=== PATIENT | male | born 1975 | race Two or more races ===

== ENCOUNTER 2017-11-09 19:04 | Inpatient (IN) | payer MEDICAID ==
[~2017-11-09] VITALS: Ht 177.8 cm; Wt 72.6 kg
[2017-11-09] MEDS ORDERED: Ipratropium 0.02% Inh Soln 2.5ml UD HHN ONE (19:30)
[2017-11-09] MEDS ORDERED: Solu-MEDROL 125mg Inj IVP ONE (19:30)
--- NOTE | 2017-11-09 19:36 | Emergency Room Report ---
History of Present Illness General Chief Complaint: Upper Respiratory Illness Source: Patient Present Illness HPI 42-year-old male, history of hypertension, long time smoker but no formal diagnosis of COPD, p/w SOB for 1 week. SOB occurs both at rest and on exertion.+ productive cough with sputum, fever and chills, Denies chest pain. Noted to be wheezing, States that he has never had an albuterol inhaler Denies sick contacts or recent travel. NO Recent hospitalizations Allergies: Coded Allergies: PENICILLINS (Verified Allergy, Unknown, 11/09/17) Patient History Past Medical History: see triage record Past Surgical History: none Pertinent Family History: none Reviewed Nursing Documentation: PMH: Agreed, PSxH: Agreed Review of Systems All Other Systems: negative except mentioned in HPI Physical Exam Vital Signs Date Time Temp Pulse Resp B/P (MAP) Pulse Ox O2 Delivery O2 Flow Rate FiO2 11/09/17 19:02 99.0 89 20 162/101 97 Room Air 99.0 Sp02 EP Interpretation: reviewed, normal General Appearance: moderate distress, other - resp distress speaking 2-3 word sentences Head: normocephalic, atraumatic Eyes: bilateral eye normal inspection, bilateral eye PERRL, bilateral eye EOMI ENT: normal ENT inspection, normal pharynx, normal voice, moist mucus membranes Neck: normal inspection, full range of motion, supple Respiratory: respiratory distress, wheezing, chest symmetrical Cardiovascular #1: normal inspection, regular rate, rhythm, normal capillary refill Cardiovascular #2: 2+ radial (R), 2+ radial (L) Gastrointestinal: normal inspection, non tender, soft, non-distended, no guarding Genitourinary: no CVA tenderness Musculoskeletal: normal inspection, back normal, normal range of motion, non- tender Neurologic: normal inspection, alert, oriented x3, responsive, motor strength/ tone normal, sensory intact, normal gait, speech normal Psychiatric: normal inspection, judgement/insight normal, memory normal Skin: normal inspection, normal color, no rash, warm/dry, well hydrated, normal turgor Medical Decision Making Diagnostic Impression: Primary Impression: Respiratory distress Additional Impressions: Wheezing Pneumonia ER Course 42-year-old male with fever chills cough shortness of breath for one week DDX: Viral URI vs. pneumonia versus COPD exacerbation Plan: Labs, CXR, nebs, steroids, antibiotics ER course: Nebs and steroids given patient "shaking" was awake during that time, feels like muscles are spasms VS normal during event ativan was given levaquin given for pna Disposition: Patient is to be admitted to telemetry D/w hospitalist Dr Swan / Dr Vanegas EKG Diagnostic Results EP Interpretation: Yes Rate: normal Rhythm: NSR ST Segments: No acute changes ASA given to patient: No Rhythm Strip EP Interpretation: Yes Rate: 70 Rhythm: NSR, no PVCs, no ectopy Chest X-ray CXR: Ordered: Yes 1 view Indication: SOB EP interpretation: Yes Interpretation: +Infiltrate R Impression: R sided pneumonia Electronically signed by Bryce Reynolds MD Laboratory Tests Test 11/09/17 19:30 White Blood Count 8.9 K/UL (4.8-10.8) Red Blood Count 5.79 M/UL (4.70-6.10) Hemoglobin 16.2 G/DL (14.2-18.0) Hematocrit 48.7 % (42.0-52.0) Mean Corpuscular Volume 84 FL (80-99) Mean Corpuscular Hemoglobin 28.0 PG (27.0-31.0) Mean Corpuscular Hemoglobin Concent 33.3 G/DL (32.0-36.0) Red Cell Distribution Width 11.1 % (11.6-14.8) L Platelet Count 238 K/UL (150-450) Mean Platelet Volume 7.9 FL (6.5-10.1) Neutrophils (%) (Auto) 49.5 % (45.0-75.0) Lymphocytes (%) (Auto) 27.2 % (20.0-45.0) Monocytes (%) (Auto) 13.0 % (1.0-10.0) H Eosinophils (%) (Auto) 8.7 % (0.0-3.0) H Basophils (%) (Auto) 1.6 % (0.0-2.0) Sodium Level 137 MMOL/L (136-145) Potassium Level 3.3 MMOL/L (3.5-5.1) L Chloride Level 100 MMOL/L (98-107) Carbon Dioxide Level 29 MMOL/L (21-32) Anion Gap 8 mmol/L (5-15) Blood Urea Nitrogen 23 mg/dL (7-18) H Creatinine 1.0 MG/DL (0.55-1.30) Estimate Glomerular Filtration Rate > 60 mL/min (>60) Glucose Level 103 MG/DL (74-106) Lactic Acid Level 1.10 mmol/L (0.66-2.22) Calcium Level 9.3 MG/DL (8.5-10.1) Total Bilirubin 0.3 MG/DL (0.2-1.0) Aspartate Amino Transferase (AST) 28 U/L (15-37) Alanine Aminotransferase (ALT) 39 U/L (12-78) Alkaline Phosphatase 98 U/L (46-116) Total Protein 7.9 G/DL (6.4-8.2) Albumin 4.3 G/DL (3.4-5.0) Globulin 3.6 g/dL Albumin/Globulin Ratio 1.2 (1.0-2.7) Last Vital Signs Date Time Temp Pulse Resp B/P (MAP) Pulse Ox O2 Delivery O2 Flow Rate FiO2 11/09/17 19:02 99.0 89 20 162/101 97 Room Air 99.0 Disposition: ADMITTED INPATIENT Condition: Bryce Kendall M.D. Nov 09, 2017 19:36
[2017-11-09] MEDS ORDERED: LORazepam Inj 2mg/ml 1ml ONE (19:40)
[2017-11-09] MEDS ORDERED: LORazepam Inj 2mg/ml 1ml IV ONE (19:45)
[2017-11-09 19:54] LABS: BASOPHILS % (AUTO) 1.6 % (0.0-2.0); EOSINOPHILS % (AUTO) 8.7 % (0.0-3.0); HEMATOCRIT 48.7 % (42.0-52.0); HEMOGLOBIN 16.2 G/DL (14.2-18.0); LYMPHOCYTES % (AUTO) 27.2 % (20.0-45.0); MEAN CORPUSCULAR VOLUME 84 FL (80-99); NEUTROPHILS % (AUTO) 49.5 % (45.0-75.0); PLATELET COUNT 238 K/UL (150-450); RED BLOOD COUNT 5.79 M/UL (4.70-6.10); RED CELL DISTRIBUTION WIDTH 11.1 % (11.6-14.8); WHITE BLOOD COUNT 8.9 K/UL (4.8-10.8)
[2017-11-09 20:09] LABS: ANION GAP 8 mmol/L (5-15); BLOOD UREA NITROGEN 23 mg/dL (7-18); CALCIUM 9.3 MG/DL (8.5-10.1); CARBON DIOXIDE 29 MMOL/L (21-32); CHLORIDE 100 MMOL/L (98-107); POTASSIUM 3.3 MMOL/L (3.5-5.1); SODIUM 137 MMOL/L (136-145)
[2017-11-09 20:14] LABS: ALANINE AMINOTRANSFERASE 39 U/L (12-78); ALBUMIN 4.3 G/DL (3.4-5.0); ALBUMIN/GLOBULIN RATIO 1.2 (1.0-2.7); ALKALINE PHOSPHATASE 98 U/L (46-116); ASPARTATE AMINO TRANSFERASE 28 U/L (15-37); BILIRUBIN,TOTAL 0.3 MG/DL (0.2-1.0)
[2017-11-09] MEDS: Albuterol ud Inhalation HHN SCH ×2 (20:33→20:34)
[2017-11-09 22:40] VITALS: BP 120/76
[2017-11-09 23:00] VITALS: BP 145/80
[2017-11-09] MEDS ORDERED: Morphine Sulfate 2mg/ml Inj IVP PRN (23:30)
[2017-11-09] MEDS ORDERED: Morphine Sulfate 4mg/ml Inj IVP PRN (23:30)
[2017-11-09] MEDS ORDERED: HYDRALAZINE HCL25 M1 ORAL (23:38)
[2017-11-10] MEDS ORDERED: Morphine Sulfate 4mg/ml Inj ONE (02:01)
[2017-11-10 03:18] VITALS: BP 113/73
[2017-11-10] MEDS ORDERED: Albuterol/Ipratropium 3ml neb HHN PRN (06:45)
[2017-11-10] MEDS ORDERED: guaiFENesin DM 100mg/5ml ORAL PRN (06:45)
[2017-11-10] MEDS ORDERED: Promethazine/Codeine 5ml UD ORAL PRN ×2 (07:00→13:30)
[2017-11-10 07:08] LABS: ANION GAP 9 mmol/L (5-15); BLOOD UREA NITROGEN 19 mg/dL (7-18); CALCIUM 9.2 MG/DL (8.5-10.1); CARBON DIOXIDE 27 MMOL/L (21-32); CHLORIDE 102 MMOL/L (98-107); CREATININE 0.9 MG/DL (0.55-1.30); POTASSIUM 3.6 MMOL/L (3.5-5.1); SODIUM 137 MMOL/L (136-145)
[2017-11-10 07:11] LABS: HEMOGLOBIN 15.1 G/DL (14.2-18.0); MEAN CORPUSCULAR VOLUME 85 FL (80-99); PLATELET COUNT 219 K/UL (150-450); RED BLOOD COUNT 5.19 M/UL (4.70-6.10); RED CELL DISTRIBUTION WIDTH 11.4 % (11.6-14.8); WHITE BLOOD COUNT 4.9 K/UL (4.8-10.8)
[2017-11-10 08:14] VITALS: BP 110/74
[2017-11-10] MEDS ORDERED: Theophylline ER 100mg ORAL SCH (09:00)
--- NOTE | 2017-11-10 10:47 | Diagnostic Imaging Report ---
Indication: Dyspnea Comparison: None A single view chest radiograph was obtained. Findings: No definite infiltrate or pulmonary vascular congestion identified. The heart is enlarged. The aorta is mildly enlarged consistent with atherosclerotic vascular disease. The bones are osteopenic. Impression: No acute disease
[2017-11-10] MEDS: Albuterol/Ipratropium 3ml neb HHN SCH ×3 (10:56→20:17)
[2017-11-10 11:51] VITALS: BP 114/70
--- NOTE | 2017-11-10 12:37 | History and Physical ---
History of Present Illness General Date patient seen: Nov 10, 2017 Time patient seen: 12:37 Reason for Hospitalization: Pneumonia/bronchitis, COPD exacerbation Present Illness HPI 42y/o male with pmh of HTN, former tobacco abuse who presents with SOB and cough. Pt c/o cough and SOB, worsening over 1 week. oker but no formal diagnosis of COPD, p/w SOB for 1 week. SOB occurs both at rest and on exertion. + productive cough with sputum, fever and chills, Denies chest pain, abd pain, n /v/d/c. Denies sick contacts or recent travel. No recent hospitalizations. Pt states he used to smoke cigarettes but quit abt 1 year ago. In ED, pt noted to be wheezing. CXR w/ concern for pneumonia. Pt given solumedrol 125mg IV, levaquin, nebs. Allergies: Coded Allergies: PENICILLINS (Verified Allergy, Unknown, 11/09/17) Medication History Scheduled Hydralazine Hcl* (Hydralazine Hcl*), 25 MG ORAL DAILY, (Reported) Patient History Healthcare decision maker Resuscitation status Full Code Advanced Directive on File No Past Medical/Surgical History Past Medical/Surgical History: (1) HTN (hypertension) Family History Family History: Patient reports no known family medical history. Social History Social History: (1) Former cigarette smoker Review of Systems Constitutional: Reports: malaise, weakness Eye: Reports: no symptoms ENT: Reports: no symptoms Respiratory: Reports: cough, shortness of breath, wheezing Cardiovascular: Reports: no symptoms Gastrointestinal: Reports: no symptoms Genitourinary: Reports: no symptoms Musculoskeletal: Reports: no symptoms Skin: Reports: no symptoms Psychiatric: Reports: no symptoms Neurological: Reports: no symptoms Endocrine: Reports: no symptoms Hematologic/Lymphatic: Reports: no symptoms Physical Exam Physical Exam Narrative General: alert, cooperative, no distress, appears stated age Head: normocephalic, without obvious abnormality, atraumatic Eyes: conjunctivae/corneas clear. PERRL, EOM's intact Throat: lips, mucosa, and tongue normal. MMM Neck: supple, symmetrical, trachea midline, and no JVD Lungs:+wheezing and rhonchi b/l Heart: regular rate and rhythm, S1, S2 normal, no murmur, click, rub or gallop Abdomen: soft, non-tender, non-distended, bowel sounds normal; no masses or organomegaly Extremities: extremities normal, atraumatic, no cyanosis or edema Pulses: 2+ and symmetric Skin: skin color, texture, turgor normal; no rashes or lesions Neurologic: grossly normal, no focal deficits Last 24 Hour Vital Signs Date Time Temp Pulse Resp B/P (MAP) Pulse Ox O2 Delivery O2 Flow Rate FiO2 11/10/17 11:51 97.5 71 20 114/70 96 11/10/17 11:21 97.6 11/10/17 11:04 87 20 97 Room Air 21 11/10/17 10:56 87 20 97 Room Air 21 11/10/17 08:14 97.6 108 22 110/74 96 11/10/17 03:18 97.5 84 20 113/73 95 Room Air 11/10/17 02:01 127/72 11/09/17 23:00 97.8 97 22 145/80 95 Room Air 11/09/17 22:40 98.8 20 120/76 99 Simple Mask 5.0 36 98.8 11/09/17 20:41 88 20 Simple Mask 5.0 36 11/09/17 20:41 88 20 99 Simple Mask 5.0 36 11/09/17 19:30 89 20 Room Air 11/09/17 19:02 99.0 89 20 162/101 97 Room Air 99.0 Laboratory Tests Test 11/09/17 19:30 11/10/17 05:30 White Blood Count 8.9 K/UL (4.8-10.8) 4.9 K/UL (4.8-10.8) Red Blood Count 5.79 M/UL (4.70-6.10) 5.19 M/UL (4.70-6.10) Hemoglobin 16.2 G/DL (14.2-18.0) 15.1 G/DL (14.2-18.0) Hematocrit 48.7 % (42.0-52.0) 44.0 % (42.0-52.0) Mean Corpuscular Volume 84 FL (80-99) 85 FL (80-99) Mean Corpuscular Hemoglobin 28.0 PG (27.0-31.0) 29.2 PG (27.0-31.0) Mean Corpuscular Hemoglobin Concent 33.3 G/DL (32.0-36.0) 34.4 G/DL (32.0-36.0) Red Cell Distribution Width 11.1 % (11.6-14.8) L 11.4 % (11.6-14.8) L Platelet Count 238 K/UL (150-450) 219 K/UL (150-450) Mean Platelet Volume 7.9 FL (6.5-10.1) 8.0 FL (6.5-10.1) Neutrophils (%) (Auto) 49.5 % (45.0-75.0) % (45.0-75.0) Lymphocytes (%) (Auto) 27.2 % (20.0-45.0) % (20.0-45.0) Monocytes (%) (Auto) 13.0 % (1.0-10.0) H % (1.0-10.0) Eosinophils (%) (Auto) 8.7 % (0.0-3.0) H % (0.0-3.0) Basophils (%) (Auto) 1.6 % (0.0-2.0) % (0.0-2.0) Sodium Level 137 MMOL/L (136-145) 137 MMOL/L (136-145) Potassium Level 3.3 MMOL/L (3.5-5.1) L 3.6 MMOL/L (3.5-5.1) Chloride Level 100 MMOL/L (98-107) 102 MMOL/L (98-107) Carbon Dioxide Level 29 MMOL/L (21-32) 27 MMOL/L (21-32) Anion Gap 8 mmol/L (5-15) 9 mmol/L (5-15) Blood Urea Nitrogen 23 mg/dL (7-18) H 19 mg/dL (7-18) H Creatinine 1.0 MG/DL (0.55-1.30) 0.9 MG/DL (0.55-1.30) Estimat Glomerular Filtration Rate > 60 mL/min (>60) > 60 mL/min (>60) Glucose Level 103 MG/DL (74-106) 139 MG/DL (74-106) H Lactic Acid Level 1.10 mmol/L (0.66-2.22) Calcium Level 9.3 MG/DL (8.5-10.1) 9.2 MG/DL (8.5-10.1) Total Bilirubin 0.3 MG/DL (0.2-1.0) Aspartate Amino Transf (AST/SGOT) 28 U/L (15-37) Alanine Aminotransferase (ALT/SGPT) 39 U/L (12-78) Alkaline Phosphatase 98 U/L (46-116) Total Protein 7.9 G/DL (6.4-8.2) Albumin 4.3 G/DL (3.4-5.0) Globulin 3.6 g/dL Albumin/Globulin Ratio 1.2 (1.0-2.7) Differential Total Cells Counted 100 Neutrophils % (Manual) 85 % (45-75) H Lymphocytes % (Manual) 13 % (20-45) L Monocytes % (Manual) 1 % (1-10) Eosinophils % (Manual) 1 % (0-3) Basophils % (Manual) 0 % (0-2) Band Neutrophils 0 % (0-8) Platelet Estimate Adequate Platelet Morphology Normal Red Blood Cell Morphology Normal Magnesium Level 1.8 MG/DL (1.8-2.4) Height (Feet): 5 Height (Inches): 10.00 Weight (Pounds): 160 Medications Current Medications Medications (Trade) Dose Ordered Sig/Sherine Route PRN Reason Start Time Stop Time Status Last Admin Dose Admin Acetaminophen (Tylenol) 650 mg Q4H PRN ORAL Mild Pain/Temp > 100.5 11/10/17 11:15 12/10/17 11:14 11/10/17 11:21 Albuterol/ Ipratropium (Albuterol/ Ipratropium) 3 ml Q4H PRN HHN Shortness of Breath 11/10/17 06:45 11/15/17 06:44 Albuterol/ Ipratropium (Albuterol/ Ipratropium) 3 ml Q6HRT HHN 11/10/17 08:00 11/15/17 07:59 11/10/17 10:56 Guaifenesin (Mucinex ER) 600 mg TWICE A DAY ORAL 11/10/17 18:00 12/10/17 17:59 UNV Guaifenesin/ Codeine Phosphate (Robitussin with codeine) 10 ml Q4H PRN ORAL For Cough 11/10/17 12:45 12/10/17 12:44 UNV Guaifenesin/ Dextromethorphan (Robitussin DM) 10 ml Q4H PRN ORAL For Cough 11/10/17 06:45 12/10/17 06:44 Levofloxacin 150 ml @ 100 mls/hr Q24H IVPB 11/10/17 20:00 11/17/17 19:59 Ondansetron HCl (Zofran) 4 mg Q4HR PRN IVP Nausea & Vomiting 11/09/17 23:30 12/09/17 23:29 11/10/17 07:44 Prednisone (predniSONE) 40 mg DAILY ORAL 11/10/17 12:45 12/10/17 12:44 UNV Sodium Chloride 1,000 ml @ 75 mls/hr [id number] IV 11/10/17 11:15 12/10/17 11:14 11/10/17 11:02 Theophylline (Miguel-Dur) 100 mg EVERY 12 HOURS ORAL 11/10/17 09:00 12/10/17 08:59 11/10/17 08:23 Assessment/Plan Problem List: (1) Purulent bronchitis Assessment & Plan: CXR does not show clear cut pneumonia ICD Codes: J41.1 - Mucopurulent chronic bronchitis SNOMED: 55388617 (2) Acute exacerbation of chronic obstructive pulmonary disease (COPD) ICD Codes: J44.1 - Chronic obstructive pulmonary disease with (acute) exacerbation SNOMED: 853591737 (3) HTN (hypertension) ICD Codes: I10 - Essential (primary) hypertension SNOMED: 79131106 (4) Hypokalemia ICD Codes: E87.6 - Hypokalemia SNOMED: 36276855 Status: stable Assessment/Plan Admit inpt Pulm consulted Empiric levaquin (11/09-) F/u sputum cx Check influenza A&B s/p solumedrol 125mg IV in ED Cont solumedrol per pulm Nebs ATC and PRN Mucinex BID Guaifenesin w/ codeine PRN cough Chest percussion Repeat CXR in AM Pain control, bowel regimen Supportive care DVT ppx w/ SCDs, early ambulation Likely d/c home tomorrow if continues to improve FULL CODE D/w pt, RN, SW/CM, pulm regarding mgmt and dispo Aditya Perez M.D. Nov 10, 2017 12:37
--- NOTE | 2017-11-10 12:42 | Cardiology Report ---
APPROVED REPORT EKG Measurement Heart [id number] Normal sinus rhythm Low voltage QRS Cannot rule out Anterior infarct, age undetermined Abnormal ECG
[2017-11-10] MEDS ORDERED: guaiFENesin w/Codeine 5ml Liq ud ORAL PRN (12:45)
--- NOTE | 2017-11-10 13:22 | Consultation ---
History of Present Illness General Date patient seen: Nov 10, 2017 Chief Complaint: Upper Respiratory Illness Present Illness HPI 42-year-old male, history of hypertension, long time smoker but no formal diagnosis of COPD, p/w SOB for 1 week. SOB occurs both at rest and on exertion.+ productive cough with sputum, fever and chills, Denies chest pain. Noted to be wheezing. Pt is admitted for acute exacerbation of COPD and bronchitis. Allergies: Coded Allergies: PENICILLINS (Verified Allergy, Unknown, 11/09/17) Medication History Scheduled Hydralazine Hcl* (Hydralazine Hcl*), 25 MG ORAL DAILY, (Reported) Patient History Healthcare decision maker Resuscitation status Full Code Advanced Directive on File No Past Medical/Surgical History Past Medical/Surgical History: (1) History of smoking Review of Systems All Other Systems: negative except mentioned in HPI Physical Exam General Appearance: WD/WN Lines, tubes and drains: peripheral HEENT: normocephalic, atraumatic Neck: non-tender, normal alignment Respiratory/Chest: chest wall non-tender, rhonchi - left, rhonchi - right Cardiovascular/Chest: normal peripheral pulses, regular rhythm Last 24 Hour Vital Signs Date Time Temp Pulse Resp B/P (MAP) Pulse Ox O2 Delivery O2 Flow Rate FiO2 11/10/17 11:51 97.5 71 20 114/70 96 11/10/17 11:21 97.6 11/10/17 11:04 87 20 97 Room Air 21 11/10/17 10:56 87 20 97 Room Air 21 11/10/17 08:14 97.6 108 22 110/74 96 11/10/17 03:18 97.5 84 20 113/73 95 Room Air 11/10/17 02:01 127/72 11/09/17 23:00 97.8 97 22 145/80 95 Room Air 11/09/17 22:40 98.8 20 120/76 99 Simple Mask 5.0 36 98.8 11/09/17 20:41 88 20 Simple Mask 5.0 36 11/09/17 20:41 88 20 99 Simple Mask 5.0 36 11/09/17 19:30 89 20 Room Air 11/09/17 19:02 99.0 89 20 162/101 97 Room Air 99.0 Laboratory Tests Test 11/09/17 19:30 11/10/17 05:30 White Blood Count 8.9 K/UL (4.8-10.8) 4.9 K/UL (4.8-10.8) Red Blood Count 5.79 M/UL (4.70-6.10) 5.19 M/UL (4.70-6.10) Hemoglobin 16.2 G/DL (14.2-18.0) 15.1 G/DL (14.2-18.0) Hematocrit 48.7 % (42.0-52.0) 44.0 % (42.0-52.0) Mean Corpuscular Volume 84 FL (80-99) 85 FL (80-99) Mean Corpuscular Hemoglobin 28.0 PG (27.0-31.0) 29.2 PG (27.0-31.0) Mean Corpuscular Hemoglobin Concent 33.3 G/DL (32.0-36.0) 34.4 G/DL (32.0-36.0) Red Cell Distribution Width 11.1 % (11.6-14.8) L 11.4 % (11.6-14.8) L Platelet Count 238 K/UL (150-450) 219 K/UL (150-450) Mean Platelet Volume 7.9 FL (6.5-10.1) 8.0 FL (6.5-10.1) Neutrophils (%) (Auto) 49.5 % (45.0-75.0) % (45.0-75.0) Lymphocytes (%) (Auto) 27.2 % (20.0-45.0) % (20.0-45.0) Monocytes (%) (Auto) 13.0 % (1.0-10.0) H % (1.0-10.0) Eosinophils (%) (Auto) 8.7 % (0.0-3.0) H % (0.0-3.0) Basophils (%) (Auto) 1.6 % (0.0-2.0) % (0.0-2.0) Sodium Level 137 MMOL/L (136-145) 137 MMOL/L (136-145) Potassium Level 3.3 MMOL/L (3.5-5.1) L 3.6 MMOL/L (3.5-5.1) Chloride Level 100 MMOL/L (98-107) 102 MMOL/L (98-107) Carbon Dioxide Level 29 MMOL/L (21-32) 27 MMOL/L (21-32) Anion Gap 8 mmol/L (5-15) 9 mmol/L (5-15) Blood Urea Nitrogen 23 mg/dL (7-18) H 19 mg/dL (7-18) H Creatinine 1.0 MG/DL (0.55-1.30) 0.9 MG/DL (0.55-1.30) Estimat Glomerular Filtration Rate > 60 mL/min (>60) > 60 mL/min (>60) Glucose Level 103 MG/DL (74-106) 139 MG/DL (74-106) H Lactic Acid Level 1.10 mmol/L (0.66-2.22) Calcium Level 9.3 MG/DL (8.5-10.1) 9.2 MG/DL (8.5-10.1) Total Bilirubin 0.3 MG/DL (0.2-1.0) Aspartate Amino Transf (AST/SGOT) 28 U/L (15-37) Alanine Aminotransferase (ALT/SGPT) 39 U/L (12-78) Alkaline Phosphatase 98 U/L (46-116) Total Protein 7.9 G/DL (6.4-8.2) Albumin 4.3 G/DL (3.4-5.0) Globulin 3.6 g/dL Albumin/Globulin Ratio 1.2 (1.0-2.7) Differential Total Cells Counted 100 Neutrophils % (Manual) 85 % (45-75) H Lymphocytes % (Manual) 13 % (20-45) L Monocytes % (Manual) 1 % (1-10) Eosinophils % (Manual) 1 % (0-3) Basophils % (Manual) 0 % (0-2) Band Neutrophils 0 % (0-8) Platelet Estimate Adequate Platelet Morphology Normal Red Blood Cell Morphology Normal Magnesium Level 1.8 MG/DL (1.8-2.4) Troponin I 0.017 ng/mL (0.000-0.056) Pro-B-Type Natriuretic Peptide 12 pg/mL (0-125) Height (Feet): 5 Height (Inches): 10.00 Weight (Pounds): 160 Medications Current Medications Medications (Trade) Dose Ordered Sig/Sherine Route PRN Reason Start Time Stop Time Status Last Admin Dose Admin Acetaminophen (Tylenol) 650 mg Q4H PRN ORAL Mild Pain/Temp > 100.5 11/10/17 11:15 12/10/17 11:14 11/10/17 11:21 Albuterol/ Ipratropium (Albuterol/ Ipratropium) 3 ml Q4H PRN HHN Shortness of Breath 11/10/17 06:45 11/15/17 06:44 Albuterol/ Ipratropium (Albuterol/ Ipratropium) 3 ml Q6HRT HHN 11/10/17 08:00 11/15/17 07:59 11/10/17 10:56 Guaifenesin (Mucinex ER) 600 mg TWICE A DAY ORAL 11/10/17 18:00 12/10/17 17:59 Guaifenesin/ Codeine Phosphate (Robitussin with codeine) 10 ml Q4H PRN ORAL For Cough 11/10/17 12:45 12/10/17 12:44 Levofloxacin 150 ml @ 100 mls/hr Q24H IVPB 11/10/17 20:00 11/17/17 19:59 Methylprednisolone Sodium Succinate (Solu-MEDROL) 40 mg EVERY 6 HOURS IVP 11/10/17 18:00 12/10/17 17:59 Ondansetron HCl (Zofran) 4 mg Q4HR PRN IVP Nausea & Vomiting 11/09/17 23:30 12/09/17 23:29 11/10/17 07:44 Sodium Chloride 1,000 ml @ 75 mls/hr [id number] IV 11/10/17 11:15 12/10/17 11:14 11/10/17 11:02 Assessment/Plan Problem List: (1) Acute exacerbation of chronic obstructive pulmonary disease (COPD) ICD Codes: J44.1 - Chronic obstructive pulmonary disease with (acute) exacerbation SNOMED: 449325898 (2) Purulent bronchitis ICD Codes: J41.1 - Mucopurulent chronic bronchitis SNOMED: 47010843 (3) Viral syndrome ICD Codes: B34.9 - Viral infection, unspecified SNOMED: 50704157, 195635403 (4) History of smoking ICD Codes: Z87.891 - Personal history of nicotine dependence SNOMED: 56138322169968315 Assessment/Plan respiratory treatment iv abx, steroids check sputum Empirically Tamiflu. CHAD VAN Nov 10, 2017 13:22
[2017-11-10] MEDS: Oseltamivir 75mg cap ORAL SCH ×2 (15:22→20:39)
[2017-11-10 16:00] VITALS: BP 125/85
[2017-11-10] MEDS: guaiFENesin ER 600mg tab ORAL SCH (17:11)
[2017-11-10] MEDS: Solu-MEDROL 40mg Inj IVP SCH (17:11)
[2017-11-10 19:52] VITALS: BP 138/82
[2017-11-11] MEDS: Albuterol/Ipratropium 3ml neb HHN SCH ×3 (00:11→13:07)
[2017-11-11] MEDS: Solu-MEDROL 40mg Inj IVP SCH ×2 (00:28→05:36)
[2017-11-11 00:47] VITALS: BP 139/80
[2017-11-11 04:18] VITALS: BP 136/76
[2017-11-11] MEDS: guaiFENesin ER 600mg tab ORAL SCH (07:48)
[2017-11-11] MEDS: Oseltamivir 75mg cap ORAL SCH (07:48)
[2017-11-11 08:12] VITALS: BP 130/79
--- NOTE | 2017-11-11 10:08 | Diagnostic Imaging Report ---
Indication: 11/09/2017 Technique: 2 views of the chest Comparison: None Findings: Better inspiration currently. Lungs and pleural spaces are clear. The heart size is normal. The bones are unremarkable. No significant interim change. Impression: Negative
[2017-11-11] MEDS: Norco 5mg/325mg tab ORAL PRN ×2 (10:19→15:51)
--- NOTE | 2017-11-11 10:58 | Pulmonology Progress Note ---
Assessment/Plan Assessment/Plan ASSESSMENT acute COPD exacerbation acute bronchitis viral syndrome hx of smoking Hx of HTN PLAN OF CARE MS fkoor O2 prn titrate HHN ATC and prn IV steroids and taper gradually emrpici abx CXR negative x 2 sputum cx negative influenza test negative influenza a/gen ordered, Tamiflu continue for now bl cx prel negative a/tussive prn supportive care encourage to continue abstinence from smoking monitor BP, currently normotensive case discussed and evaluated by supervising physician Subjective Allergies: Coded Allergies: PENICILLINS (Verified Allergy, Unknown, 11/09/17) Subjective reports wheezing, intermittent SOB, no chest pain, + cough, dry, minimally productive, no hemoptysis no fever, no leukocytosis Objective Last 24 Hour Vital Signs Date Time Temp Pulse Resp B/P (MAP) Pulse Ox O2 Delivery O2 Flow Rate FiO2 11/11/17 10:19 97.3 11/11/17 08:12 97.3 96 20 130/79 96 11/11/17 07:11 77 20 98 Room Air 21 11/11/17 07:04 75 18 97 Room Air 21 11/11/17 04:18 97.8 77 20 136/76 94 Room Air 11/11/17 00:47 97.5 106 20 139/80 94 Room Air 11/11/17 00:12 102 20 99 Room Air 21 11/11/17 00:11 98 20 96 Room Air 21 11/10/17 19:52 97.9 87 20 138/82 93 Room Air 11/10/17 19:45 104 20 100 Room Air 21 11/10/17 19:30 101 20 98 Room Air 21 11/10/17 16:00 97.3 100 19 125/85 98 11/10/17 13:56 87 20 99 Room Air 21 11/10/17 13:49 85 20 98 Room Air 21 11/10/17 12:20 97.5 11/10/17 11:51 97.5 71 20 114/70 96 11/10/17 11:21 97.6 11/10/17 11:04 87 20 97 Room Air 21 11/10/17 10:56 87 20 97 Room Air 21 Intake and Output 11/10/17 11/11/17 19:00 07:00 Intake Total 1290 ml 225 ml Balance 1290 ml 225 ml Intake Oral 840 ml IV Total 450 ml 225 ml General Appearance: no acute distress HEENT: normocephalic, atraumatic, anicteric, PERRL Respiratory/Chest: no respiratory distress, no accessory muscle use, expiratory wheezing Cardiovascular: normal rate, regular rhythm, no JVD Abdomen: soft, non tender, non distended Extremities: no edema, pedal pulses normal Neurologic/Psychiatric: no motor/sensory deficits, alert, oriented x 3, responsive Musculoskeletal: normal muscle bulk Microbiology Date/Time Source Procedure Growth Status 11/09/17 19:30 Blood Blood Culture - Preliminary NO GROWTH AFTER 24 HOURS Resulted 11/09/17 19:15 Blood Blood Culture - Preliminary NO GROWTH AFTER 24 HOURS Resulted 11/10/17 19:00 Nose Influenza Types A,B Antigen (ZEUS) - Final Complete 11/10/17 10:00 Sputum Gram Stain Pending Resulted 11/10/17 10:00 Sputum Sputum Culture - Preliminary NORMAL UPPER RESPIRATORY KALEB AT 24 ... Resulted Laboratory Tests 11/10/17 13:10: D-Dimer 0.22 Current Medications Medications (Trade) Dose Ordered Sig/Sherine Route PRN Reason Start Time Stop Time Status Last Admin Dose Admin Acetaminophen (Tylenol) 650 mg Q4H PRN ORAL Mild Pain/Temp > 100.5 11/10/17 11:15 12/10/17 11:14 11/11/17 03:32 Acetaminophen/ Hydrocodone Bitart ([place] 5/325) 1 tab Q4H PRN ORAL Moderate Pain (Pain Scale 4-6) 11/11/17 10:15 11/18/17 10:14 11/11/17 10:19 Albuterol/ Ipratropium (Albuterol/ Ipratropium) 3 ml Q4H PRN HHN Shortness of Breath 11/10/17 06:45 11/15/17 06:44 Albuterol/ Ipratropium (Albuterol/ Ipratropium) 3 ml Q6HRT HHN 11/10/17 08:00 11/15/17 07:59 11/11/17 07:02 Guaifenesin (Mucinex ER) 600 mg TWICE A DAY ORAL 11/10/17 18:00 12/10/17 17:59 11/11/17 07:48 Guaifenesin/ Codeine Phosphate (Robitussin with codeine) 10 ml Q4H PRN ORAL For Cough 11/10/17 12:45 3/17/18 12:44 Levofloxacin 150 ml @ 100 mls/hr Q24H IVPB 11/10/17 20:00 11/17/17 19:59 11/10/17 20:39 Methylprednisolone Sodium Succinate (Solu-MEDROL) 40 mg EVERY 6 HOURS IVP 11/10/17 18:00 12/10/17 17:59 11/11/17 05:36 Ondansetron HCl (Zofran) 4 mg Q4HR PRN IVP Nausea & Vomiting 11/09/17 23:30 12/09/17 23:29 11/10/17 07:44 Oseltamivir Phosphate (Tamiflu) 75 mg TWICE A DAY ORAL 11/10/17 14:00 11/15/17 13:59 11/11/17 07:48 Sodium Chloride 1,000 ml @ 75 mls/hr [id number] IV 11/10/17 11:15 12/10/17 11:14 11/10/17 11:02 [facility] Nov 11, 2017 10:58
[2017-11-11] MEDS ORDERED: Tubing IV Secondary IV ONE (11:24)
[2017-11-11 11:30] VITALS: BP 136/90
[2017-11-11] MEDS ORDERED: LEVOFLOXACIN750 MG ORAL (13:32)
[2017-11-11] MEDS ORDERED: ROBITUSSIN AC5 ML ORAL (13:32)
[2017-11-11] MEDS ORDERED: PREDNISONE20 MG ORAL (13:32)
[2017-11-11] MEDS ORDERED: MUCINEX600 MG ORAL (13:33)
[2017-11-11] MEDS ORDERED: ALBUTEROL SULF8.5 GM INH (13:33)
[2017-11-11] MEDS ORDERED: ADVAIR 100-501 EACH INH (13:34)
[2017-11-11] MEDS ORDERED: Solu-MEDROL 40mg Inj IVP SCH (14:00)
[2017-11-11 15:44] VITALS: BP 157/99
--- NOTE | 2017-11-11 15:46 | Diagnostic Imaging Report ---
Indications: Reason For Exam: BK PAIN Technique: 2 views of the thoracic spine Comparison: None Findings: Bony alignment is normal except for possible mild scoliotic deformity at the cervicothoracic junction. Vertebral body heights are preserved. Disc spaces are preserved. Pedicles are intact. No gross paraspinous mass. Impression: No acute process
--- NOTE | 2017-11-11 15:47 | Diagnostic Imaging Report ---
Indication: Reason For Exam: BK PAIN Technique: 4 views of the lumbar spine Comparison: None Findings: There is degenerative disc narrowing with vacuum formation at L5-S1. The remaining disc spaces are preserved. Vertebral body heights are preserved. Bony alignment is normal. No acute fractures. No dislocations. Pedicles are intact. Sacroiliac joint spaces are preserved. Sacral arches are preserved Impression: Degenerative changes at L4-5. No acute process
[2017-11-11] MEDS ORDERED: Miralax 17gm pkt ORAL PRN (16:15)
[2017-11-11] MEDS ORDERED: Magnesium Citrate Liq Btl ORAL ONE (17:00)
--- NOTE | 2017-11-14 12:48 | Discharge Summary ---
Discharge Summary Hospital Course Date of Admission Nov 09, 2017 at 20:37 Date of Discharge Nov 11, 2017 at 17:33 Admitting Diagnosis COPD, PNEUMONIA HPI Pj Curran is a 42 year old male who was admitted on Nov 09, 2017 at 20:37 for Chronic Obstructive Pulmonary Disorder, Pneumonia Hospital Course dc summary #[id number] Discharge Medications New Medications: Albuterol Sulfate* (Albuterol Sulfate Mdi*) 8.5 Gm Hfa.aer.ad 2 PUFF INH Q4H PRN for 30 Days, #1 EA 5 Refills Fluticasone/Salmeterol (Advair 100-50 Diskus) 1 Each Blst.w.dev 1 PUFF INH TWICE A DAY for 30 Days, #1 EA 2 Refills Levofloxacin* (Levofloxacin*) 750 Mg Tablet 750 MG ORAL DAILY for 5 Days, #5 TAB Prednisone* (Prednisone*) 20 Mg Tablet 40 MG ORAL DAILY for 3 Days, #6 TAB 0 Refills Guaifenesin (Mucinex) 600 Mg Tab.er.12h 600 MG ORAL TWICE A DAY for 14 Days, #30 TAB 1 Refill Guaifenesin/Codeine (Guaifenesin-Codeine Syrup) 5 Ml Liquid 10 ML ORAL Q4H PRN for 30 Days, #118 ML 0 Refills Discharge Condition Upon Discharge: stable Discharge Disposition Patient was discharged home Discharge Diagnoses: Ulices (Nguyễn)Lily NP Nov 14, 2017 12:48
--- NOTE | 2017-11-14 20:45 | Discharge Summary 2 SIG ---
DATE OF ADMISSION: 11/09/2017 DATE OF DISCHARGE: 11/11/2017 REASON FOR ADMISSION: 42-year-old male with history of COPD, hypertension, smoker in the past, presented with shortness of breath for one day. The patient reported productive cough with white sputum, fever, and chills. No chest pain. The patient admitted to wheezing. No leukocytosis. Pulse oximetry was stable on room air. Chest x-ray revealed no acute cardiopulmonary pathology. The patient was admitted with diagnosis of acute chronic obstructive pulmonary disease exacerbation, purulent bronchitis, viral syndrome, and history of smoking. HOSPITAL COURSE: The patient admitted to Medical/Surgical floor. The patient started on intravenous steroids which were tapered as permitted. The patient started on empiric antibiotics. Sputum culture was negative. Supplemental oxygen provided as needed to keep pulse oximetry above 92%. The patient received nebulizing treatment with bronchodilator. The patient was started empirically on Tamiflu. Influenza screen test was checked and was negative. Tamiflu was discontinued. Blood culture were negative. Antitussive provided as needed. Followup chest x-ray also revealed no acute pathology. The patient had x-ray of the thoracic and lumbar spine since he complained of the back pain, however, no acute fracture or acute process was noted. Noted degenerative changes at level L4-L5. The patient provided supportive care and was encouraged to continue abstinence from smoking. DVT prophylaxis provided with sequential compression device. Pain control was addressed. Bowel regimen instituted. The patient was clinically improving. Steroids were tapered. No fever. No leukocytosis. Improved respiratory status. The patient was stable for discharge home. FINAL DIAGNOSES: 1. Acute chronic obstructive pulmonary disease exacerbation. 2. Acute bronchitis. 3. Viral syndrome. 4. History of smoking. 5. History of hypertension. DISCHARGE MEDICATIONS: Prescription was provided for steroids and empiric antibiotic, maintenance and rescue inhalers and antitussive. DISCHARGE INSTRUCTIONS: The patient discharged home. Followup with the primary medical doctor in one week. Violette Vanegas M.D. . Lily Elena ([facility] Center[facility]gei N.PGino DR: PADMINI JOB#: [id number] CC: ARIE
== END 2017-11-11 17:33 | disposition home or self-care (01) | DRG 140 ==
LOC: EDBD 19:04 → EMR 20:35 → 4W 20:37 → EDBEDREQ 20:59
DX: J44.0 Chronic obstructive pulmonary disease with (acute) lower respiratory infection (principal); I10 Essential (primary) hypertension; J20.9 Acute bronchitis, unspecified; B34.9 Viral infection, unspecified; J44.1 Chronic obstructive pulmonary disease with (acute) exacerbation; E87.6 Hypokalemia; Z88.0 Allergy status to penicillin; Z87.891 Personal history of nicotine dependence
CPT/HCPCS: 36415; 71045; 71046; 72070; 72110; 80048; 80053; 83605; 83735; 83880; 84484; 85007; 85025; 85379; 86710; 87040; 87070; 87205; 93005; 94640; 94664; 99285; J2405; J7620